=== PATIENT | female | born 1990 | race Caucasian/White ===

== ENCOUNTER 2020-11-05 07:58 | Emergency (ER) | payer SELFPAY ==
[2020-11-05] MEDS ORDERED: Albuterol/Ipratropium 3.0-0.5 MG/3 ML Neb Soln NEB PRN (08:17)
--- NOTE | 2020-11-05 08:17 | EDM.PDOC ---
ED HPI GENERAL MEDICAL PROBLEM - General Chief Complaint: Chest Pain Stated Complaint: CHEST PRESSURE X 2 DAYS Time Seen by Provider: 11/05/20 08:11 Source of Information: Reports: Patient History Limitations: Reports: No Limitations - History of Present Illness INITIAL COMMENTS - FREE TEXT/NARRATIVE: 30-year-old female presents to the ED with central chest pressure discomfort for the last 2 days. She appreciates that it seems to be a little worse with eating and drinking particularly swallowing cold water. She is not aware of any reflux or heartburn. She is never had to use Tums or Rolaids. She has had 2 pregnancies without major heartburn. She does have a history of asthma starting during her second . Uses steroids inhaler daily which is brought the asthma under pretty good control. She denies any fever chills cough or sputum production. Onset: Gradual Onset Date: 11/03/20 Duration: Day(s):, Waxing/Waning Location: Reports: Chest (Central chest pressure with a feeling of it rating up into her throat and anterior neck in the midline) Quality: Reports: Ache, Pressure Severity: Moderate Improves with: Reports: None Worsens with: Reports: Other (Swallowing drinking cold water and eating seem to make it perhaps a bit worse.) Context: Denies: Activity, Exercise, Lifting, Sick Contact, Trauma, Other Associated Symptoms: Reports: Chest Pain (Central chest pressure discomfort as described in history of present illness). 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 Does have a rescue inhaler as well.) Chest Pain Score (Numeric/FACES): 6 - Related Data Allergies Allergy/AdvReac Type Severity Reaction Status Date / Time No Known Allergies Allergy Verified 11/05/20 08:09 Past Medical History Respiratory History: Reports: Asthma (Under good good good control with steroid inhaler and does have a rescue inhaler which he is not required.) : 2 Para: 2 Social & Family History - Living Situation & Occupation Living situation: Reports: Occupation: Unemployed ED ROS GENERAL - Review of Systems Review Of Systems: See Below Constitutional: Denies: Fever, Chills, Malaise, Weakness, Fatigue, Decreased Appetite, Weight Loss HEENT: Reports: No Symptoms Respiratory: Denies: Shortness of Breath, Wheezing, Pleuritic Chest Pain, Cough, Sputum Cardiovascular: Reports: Chest Pain (Central pressure chest pressure that comes and goes but is more intense this morning than it was 2 days ago. She has had this off and on for several years and no causes ever been identified.). Denies: Blood Pressure Problem, Claudication, Dyspnea on Exertion, Edema, Lightheadedness, Orthopnea, Palpitations Endocrine: Reports: Fatigue GI/Abdominal: Reports: Difficulty Swallowing (No true difficulty swallowing its there is some mild odynophagia). Denies: Abdominal Pain, Anorexia, Black Stool, Bloody Stool, Constipation, Diarrhea, Decreased Appetite, Distension, Flatus, Hematemesis, Hematochezia, Melena, Stool Incontinence, Vomiting, Other : Reports: No Symptoms Musculoskeletal: Reports: No Symptoms Skin: Reports: No Symptoms Neurological: Reports: No Symptoms Psychiatric: Reports: No Symptoms Hematologic/Lymphatic: Reports: No Symptoms Immunologic: Reports: No Symptoms ED EXAM, GENERAL - Physical Exam Exam: See Below Exam Limited By: No Limitations General Appearance: Alert, WD/WN, No Apparent Distress, Other (Temperature is 36.3 degrees. Heart rate 71 and sinus. Respiratory is 18 O2 sats are 95% on room air . BP is 119/77) Eye Exam: Bilateral Eye: Normal Inspection (No scleral icterus or blepharal pallor.) Throat/Mouth: Normal Inspection, Normal Lips, Normal Teeth, Normal Oropharynx Head: Atraumatic, Normocephalic Neck: Normal Inspection, Supple, Non-Tender, Full Range of Motion. No: Carotid Bruit, Lymphadenopathy (L), Lymphadenopathy (R), Thyromegaly Respiratory/Chest: No Respiratory Distress, Lungs Clear, Normal Breath Sounds, No Accessory Muscle Use, Other (I could not elicit any chest pain on firm compression of the ribs 2-5 in the midclavicular line bilaterally.). No: Wheezing Cardiovascular: Normal Peripheral Pulses, Regular Rate, Rhythm, No Edema, No Gallop, No Murmur, No Rub Peripheral Pulses: 3+: Carotid (L), Carotid (R), Posterior Tibial (L), Posterior Tibial (R), Dorsalis Pedis (L), Dorsalis Pedis (R) GI/Abdominal: Normal Bowel Sounds, Non-Tender, No Organomegaly, No Abnormal Bruit, No Mass, Pelvis Stable. No: Guarding, Rigid, Rebound Back Exam: Normal Inspection, Full Range of Motion. No: CVA Tenderness (L), CVA Tenderness (R) Extremities: Normal Inspection, Normal Range of Motion, Non-Tender, No Pedal Edema Neurological: Alert, Oriented, CN II-XII Intact, Normal Cognition Psychiatric: Normal Affect, Normal Mood. No: Anxious Skin Exam: Warm, Dry, Intact, Normal Color, No Rash #1 Interpretation EKG Date: 11/05/20 Time: 08:05 Rhythm: NSR Rate (Beats/Min): 78 [place]: Normal P-Wave: Present QRS: Other (Initial poor R wave progression. May be due to lead placement.) ST-T: Normal QT: Prolonged (Minimally prolonged) EKG Interpretation Comments: Borderline ECG Course - Vital Signs Last Recorded V/S: Last Vital Signs Temp 36.3 C 11/05/20 08:05 Pulse 71 11/05/20 08:05 Resp 18 11/05/20 08:05 BP 119/77 11/05/20 08:05 Pulse Ox 95 11/05/20 08:05 - Orders/Labs/Meds Orders: Active Orders 24 hr Category Date Time Status EKG 12 Lead [EKG Documentation Completion] [RC] STAT Care 11/05/20 08:22 Active RT Aerosol Therapy [RC] ASDIRECTED Care 11/05/20 08:17 Active Chest 1V Frontal [CR] Stat Exams 11/05/20 08:18 Ordered Albuterol/Ipratropium [DuoNeb 3.0-0.5 MG/3 ML] Med 11/05/20 08:17 Active 3 ml NEB Q4H PRN Medication Orders Albuterol/Ipratropium (Albuterol/Ipratropium 3.0-0.5 Mg/3 Ml Neb Soln) 3 ml NEB Q4H PRN PRN Reason: Shortness Of Breath/wheezing Meds: Medications Generic Name Dose Route Start Last Admin Trade Name Freq PRN Reason Stop Dose Admin Albuterol/Ipratropium 3 ml 11/05/20 08:17 Albuterol/Ipratropium 3.0-0.5 Mg/3 Ml Neb Soln NEB Q4H PRN Shortness Of Breath/wheezing - Radiology Interpretation Free Text/Narrative:: 30-year-old female presents to the ED with a pressure sensation in her central chest that seems to come and go are wax and wane in intensity over the last 2 days. She appreciated seems to be worse with swallowing at times. Particular cold water seem to make it worse. She denies any heartburn symptoms or reflux. She has a history of asthma which has been under good control with steroid inhaler and rarely has to use her albuterol inhaler. She denies cough or sputum production. No fever or chills. ECG shows no evidence of ischemic change. Blood pressure is normal. Lungs are clear to auscultation percussion. No chest wall pain elicited on examination. Heart sounds are normal. Plan 1 view chest x-ray. DuoNeb to see if this makes any difference in the central upper chest discomfort. My initial impression she is Can most likely got occult reflux disease causing these symptoms. - Re-Assessments/Exams Free Text/Narrative Re-Assessment/Exam: 11/05/20 08:40 One-view portable chest x-ray is within normal limits. DuoNeb did not seem to help at all with the relief of his central chest discomfort that radiates up into her throat. Therefore I strongly suspect that this is due to gastroesophageal reflux disease. Patient will given Pepcid 20 mg p.o. at this time. I am going to place her on Pepcid twice daily at bedtime and morning for 1 week and then once daily at bedtime for 1 week to see if this does not relieve the discomfort. Failing this she may require upper GI endoscopy. Advised to follow-up with her primary care provider in 2 weeks if not markedly improved. 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 History of asthma which appears to be under very good control. Chest x- ray is normal and heart tracing is completely normal. No chest wall pain identified on exam. It is my suspicion that you are experiencing reflux of stomach acid and contents during the night while sleeping. This often will not cause patients to have any heartburn symptoms. However it will cause irritation of the lining of the food pipe which will in turn will cause intermittent spasms particular irritated by warm or hot things such as coffee and cold water etc. Some spicy foods may cause increased irritation and spasm of the food pipe as well alcohol. Suggest trial of Pepcid 20 mg twice daily 1 in the morning and 1 at bedtime for 1 week and then 1 tablet at bedtime only for another week to see if symptoms completely resolve. If this does the trick then I would advise Pepcid once daily at bedtime to prevent recurrence of symptoms. Failing this however suggest follow-up with your primary care physician to arrange for upper GI endoscopy with one of the local surgeons. Sepsis Event Note (ED) - Evaluation Sepsis Screening Result: No Definite Risk - Focused Exam Vital Signs: Vital Signs Temp Pulse Resp BP Pulse Ox 11/05/20 08:05 36.3 C 71 18 119/77 95 - My Orders Last 24 Hours: My Active Orders 11/05/20 08:17 RT Aerosol Therapy [RC] ASDIRECTED Albuterol/Ipratropium [DuoNeb 3.0-0.5 MG/3 ML] 3 ml NEB Q4H PRN 11/05/20 08:18 Chest 1V Frontal [CR] Stat 11/05/20 08:22 EKG 12 Lead [EKG Documentation Completion] [RC] STAT - Assessment/Plan Last 24 Hours: My Active Orders 11/05/20 08:17 RT Aerosol Therapy [RC] ASDIRECTED Albuterol/Ipratropium [DuoNeb 3.0-0.5 MG/3 ML] 3 ml NEB Q4H PRN 11/05/20 08:18 Chest 1V Frontal [CR] Stat 11/05/20 08:22 EKG 12 Lead [EKG Documentation Completion] [RC] STAT
[2020-11-05] MEDS ORDERED: Famotidine 20 MG Tab PO ONE (08:44)
--- NOTE | 2020-11-05 08:49 | CR ---
Chest: Portable view of the chest was obtained. Comparison: No prior chest imaging is available. Heart size and mediastinum are normal. Minimal linear density is noted within the left lung base most likely due to scar or minimal atelectasis. Lungs otherwise are clear. No acute osseous abnormality is appreciated. Impression: 1. Minimal finding as noted above. Nothing acute is seen on portable chest x-ray. Diagnostic code #2
== END 2020-11-05 09:28 | disposition home or self-care (01) ==
LOC: JD.ED 07:58
DX: R07.89 Other chest pain (principal); K22.4 Dyskinesia of esophagus; J45.909 Unspecified asthma, uncomplicated
CPT/HCPCS: 71045; 93005; 94640; 99285; A9270; 93010; 99284; J7620-GY

== ENCOUNTER 2023-04-14 21:50 | Emergency (ER) | payer MEDICAID ==
[2023-04-14 22:49] LABS: BASOPHILS ABSOLUTE AUTO 0.1 K/mm3 (0.0-0.2); BASOPHILS PERCENT AUTO 0.6 % (0.0-1.0); EOSINOPHILS ABSOLUTE AUTO 0.3 K/mm3 (0.0-0.4); HEMOGLOBIN 14.4 gm/dl (12.0-16.0); IMMATURE GRAN ABSOLUTE AUTO 0.03 K/mm3 (0.00-0.05); IMMATURE GRAN PERCENT AUTO 0.2 % (0.0-0.4); LYMPHOCYTES PERCENT AUTO 36.5 % (24.0-44.0); MEAN CORPUSCULAR HGB CONC 33.5 g/dl (32.0-36.0); MEAN CORPUSCULAR VOLUME 86.5 fl (83.0-99.0); MEAN PLATELET VOLUME 9.2 fl (9.4-12.3); MONOCYTES ABSOLUTE AUTO 0.8 K/mm3 (0.0-0.8); NEUTROPHILS ABSOLUTE AUTO 7.5 K/mm3 (1.8-7.7); NEUTROPHILS PERCENT AUTO 54.7 % (41.0-71.0); PLATELET COUNT,PLT 361 K/mm3 (150-400); RED BLOOD CELL COUNT 4.97 M/mm3 (4.10-5.30); WHITE BLOOD CELL COUNT,WBC 13.76 K/mm3 (3.9-11.3)
[2023-04-14 23:03] LABS: A/G RATIO 1.2 (1-2); ALBUMIN 3.9 g/dl (3.4-5.0); ANION GAP 16.6 (5-15); BILIRUBIN TOTAL 0.4 mg/dL (0.2-1.0); BUN/CREATININE RATIO 11.1 (14-18); CALCIUM 9.1 mg/dL (8.5-10.1); CREATININE 0.9 mg/dL (0.55-1.02); EST CRCL DRUG DOSING (CG) 88.88 mL/min; POTASSIUM,K 3.6 mEq/L (3.5-5.1); PROTEIN TOTAL,TP 7.3 g/dl (6.4-8.2)
[2023-04-14 23:18] LABS: SLIDE REVIEW NORMAL SMEAR
[2023-04-14] MEDS ORDERED: Alum Hydrox/Mag Hydrox/Simeth 30 ML, Lidocaine 2% 15 ML PO ONE ×2 (23:23)
== END 2023-04-15 01:27 | disposition home or self-care (01) ==
LOC: JD.ED 21:50
DX: K21.9 Gastro-esophageal reflux disease without esophagitis (principal); J45.909 Unspecified asthma, uncomplicated
CPT/HCPCS: 36415; 71046; 80053; 84484; 84702; 85025; 85379; 93005; 99285; A9270; 93010; 99283